=== PATIENT | female | born 1970 | race Caucasian/White ===

== ENCOUNTER → 2016-06-18 | Outpatient (CLI) | payer OTHER ==
[~2016-06-18] MED LIST: ALPR.5T PO; BUTA-234 PO; HYDR1TAB PO; NORT25CA PO; bcp PO
[2016-06-18 13:48] LABS: MEAN PLATELET VOLUME 9.5 FL (7.4-10.4); RED BLOOD COUNT 4.36 10^6/uL (4.35-5.85); RED CELL DISTRIBUTION WIDTH 12.4 % (10.0-14.5); WHITE BLOOD COUNT 5.5 10^3/uL (4.3-11.0)
--- NOTE | 2016-06-18 14:08 | Diagnostic Imaging Report ---
PROCEDURE: CT head without contrast. TECHNIQUE: Multiple contiguous axial images were obtained through the brain without the use of intravenous contrast. INDICATION: Blurred vision. Headache. FINDINGS: There is no intracranial hemorrhage, edema, or mass effect. The brain parenchyma and hidalgo-white matter differentiation are preserved. There is a tiny focus of hypodensity about 4 mm in size in the left centrum semiovale of uncertain clinical significance. A similar tiny lesion is also seen in the posterior right periventricular white matter. There is no hydrocephalus. No extra-axial fluid collection is seen. The calvarium, the visualized portions of the paranasal sinuses, and the orbits appear grossly unremarkable. IMPRESSION: Minimal white matter abnormalities as described of questionable clinical significance. If symptoms persist, consider better evaluation with MRI. Dictated by: Dictated on workstation # [id number]
[2016-06-18 14:14] LABS: ALANINE AMINOTRANSFERASE 19 U/L (0-55); ALBUMIN 3.6 G/DL (3.2-4.5); ANION GAP 8 MMOL/L (5-14); ASPARTATE AMINO TRANSFERASE 18 U/L (5-34); BILIRUBIN,TOTAL 0.4 MG/DL (0.1-1.0); BLOOD UREA NITROGEN 12 MG/DL (7-18); BUN/CREATININE RATIO 13; CALCIUM 8.5 MG/DL (8.5-10.1); CARBON DIOXIDE 23 MMOL/L (21-32); CHLORIDE 108 MMOL/L (98-107); GFR ESTIMATED > 60; GLUCOSE 100 MG/DL (70-105); POTASSIUM 4.1 MMOL/L (3.6-5.0); SODIUM 139 MMOL/L (135-145); TOTAL PROTEIN 6.7 G/DL (6.4-8.2)
== END ==
LOC: RAD 13:23
PROVIDERS: ATTEND Family Medicine
DX: R51 Headache (principal); R53.83 Other fatigue; H53.8 Other visual disturbances; Z80.8 Family history of malignant neoplasm of other organs or systems; E78.5 Hyperlipidemia, unspecified; M25.551 Pain in right hip; M25.552 Pain in left hip; M25.50 Pain in unspecified joint
CPT/HCPCS: 36415; 70450; 80053; 85027; 85652; 86038

== ENCOUNTER → 2016-06-21 | Outpatient (CLI) | payer OTHER ==
[~2016-06-21] MED LIST changes: +GADOBUTROL 10 MMOL/10 ML (GADAVIST) VIAL IV ONE
--- NOTE | 2016-06-21 12:11 | Diagnostic Imaging Report ---
PROCEDURE: MR imaging of the brain with and without contrast. TECHNIQUE: Multiplanar, multisequence MR imaging of the brain was performed with and without contrast. INDICATION: Migraine headaches. 9 mL of Gadavist is administered intravenously. FINDINGS: There is no diffusion restriction to suggest an acute infarct or other diffusion abnormality. The brain parenchyma demonstrates normal signal intensity in the hidalgo and white matter. There is no enhancing mass. No hydrocephalus. No extra-axial fluid collection is seen. The central vascular flow-voids appear preserved. The internal auditory canals and inner ear structures appear symmetric. The pituitary gland is normal in size. No thalamic or pineal region mass. The paranasal sinuses and orbits appear grossly unremarkable. IMPRESSION: Unremarkable exam. Dictated by: Dictated on workstation # [id number]
== END ==
LOC: RAD 10:05
PROVIDERS: ATTEND Family Medicine
DX: R93.0 Abnormal findings on diagnostic imaging of skull and head, not elsewhere classified (principal)
CPT/HCPCS: 70553

== ENCOUNTER → 2017-01-30 | Outpatient (CLI) | payer OTHER ==
[~2017-01-30] MED LIST changes: -GADOBUTROL 10 MMOL/10 ML (GADAVIST) VIAL IV ONE
--- NOTE | 2017-01-30 12:44 | Diagnostic Imaging Report ---
3 views of lumbar spine. INDICATION: Back pain. FINDINGS: There is satisfactory alignment of the lumbar spine at the posterior spinal line. There is straightening of the upper to mid lumbar spine curvatures which could relate to muscle spasm. The vertebral body heights are preserved. There is no significant disc height loss. No significant osteophyte formation is noted. Surgical clips in the upright abdomen seen. Calcification in the right side of the pelvis could relate to uterine fibroid. IMPRESSION: Straightening of the upper and mid lumbar spine curvature could be positional or related to muscle spasm. Dictated by: Dictated on workstation # [id number]
--- NOTE | 2017-01-30 13:05 | Diagnostic Imaging Report ---
AP view of the pelvis and AP and frog-lateral views of both hips. INDICATION: Bilateral hip pain. FINDINGS: No fracture, dislocation or radiopaque foreign body seen. In the right side of the pelvis 1.3 cm calcification is noted which could relate to a uterine fibroid. The SI joints and the symphysis pubis demonstrate no significant degenerative change. The right articular surface appear unremarkable with no fracture or dislocation. The left hip appears unremarkable. IMPRESSION: No significant osteoarthritic changes or fracture seen. A 1.3 cm calcification on the right side of the pelvis could relate to a fibroid. Dictated by: Dictated on workstation # [id number]
== END ==
LOC: RAD 11:15
PROVIDERS: ATTEND Family Medicine
DX: R19.00 Intra-abdominal and pelvic swelling, mass and lump, unspecified site (principal); M54.5 Low back pain; M25.551 Pain in right hip; M25.552 Pain in left hip
CPT/HCPCS: 72100; 73521

== ENCOUNTER → 2018-02-12 | Outpatient (CLI) | payer OTHER | LOC: CARD 14:17 | PROVIDERS: ATTEND Family Medicine | DX: I49.8 Other specified cardiac arrhythmias (principal) | CPT/HCPCS: 93005 ==

== ENCOUNTER → 2018-02-14 | Outpatient (CLI) | payer OTHER | LOC: LAB 08:59 | PROVIDERS: ATTEND Family Medicine | DX: E78.5 Hyperlipidemia, unspecified (principal); R00.2 Palpitations | CPT/HCPCS: 36415; 82728; 83540 ==

== ENCOUNTER → 2018-06-10 | Outpatient (CLI) | payer OTHER | LOC: LAB 18:35 | PROVIDERS: ATTEND Nurse Practitioner Family | DX: E61.1 Iron deficiency (principal) | CPT/HCPCS: 36415; 82728; 83540 ==

== ENCOUNTER → 2018-07-29 | Outpatient (CLI) | payer OTHER ==
--- NOTE | 2018-07-29 15:42 | Diagnostic Imaging Report ---
INDICATION: Chronic neck pain. TECHNIQUE: Four views of the cervical spine were obtained. FINDINGS: The alignment is normal. The vertebral body heights are well-maintained. There is no fracture or traumatic subluxation. The odontoid is intact and the lateral masses are well aligned. There are minimal degenerative changes. IMPRESSION: Minimal degenerative changes; otherwise, unremarkable. Dictated by: Dictated on workstation # [id number]
== END ==
LOC: RAD 10:28
PROVIDERS: ATTEND Family Medicine
DX: G89.29 Other chronic pain (principal); M54.2 Cervicalgia
CPT/HCPCS: 72040

== ENCOUNTER → 2019-01-07 | Outpatient (CLI) | payer OTHER ==
--- NOTE | 2019-01-07 12:57 | Diagnostic Imaging Report ---
INDICATION: Routine screening. COMPARISON: 07/26/2015 and 01/06/2014. TECHNIQUE: 2D and 3D bilateral screening mammography was performed with CAD. FINDINGS: Scattered fibroglandular densities are identified bilaterally. The overall parenchymal pattern appears to be stable. No mass or malignant appearing microcalcifications are seen. The axillae are unremarkable. IMPRESSION: No mammographic features suspicious for malignancy are identified. ACR BI-RADS Category 1: Negative. Result letter will be mailed to the patient. Note: At least 10% of breast cancer is not imaged by mammography. Dictated by: Dictated on workstation # [id number]
== END ==
LOC: RAD 10:45
PROVIDERS: ATTEND Obstetrics & Gynecology
DX: Z12.31 Encounter for screening mammogram for malignant neoplasm of breast (principal)
CPT/HCPCS: 77067

== ENCOUNTER → 2019-12-22 | Outpatient (CLI) | payer OTHER ==
[2019-12-22 11:49] LABS: BASOPHILS % (AUTO) 0 % (0-10); EOSINOPHILS # (AUTO) 0.3 10^3/uL (0.0-0.3); EOSINOPHILS % (AUTO) 6 % (0-10); HEMATOCRIT 41 % (35-52); HEMOGLOBIN 13.6 g/dL (11.5-16.0); LYMPHOCYTES # (AUTO) 1.6 10^3/uL (1.0-4.0); LYMPHOCYTES % (AUTO) 32 % (12-44); MEAN CORPUSCULAR HEMOGLOBIN 30 pg (25-34); MEAN CORPUSCULAR HGB CONC 34 g/dL (32-36); MEAN CORPUSCULAR VOLUME 90 fL (80-99); MEAN PLATELET VOLUME 9.4 fL (9.0-12.2); MONOCYTES # (AUTO) 0.4 10^3/uL (0.0-1.0); MONOCYTES % (AUTO) 8 % (0-12); NEUTROPHILS # (AUTO) 2.7 10^3/uL (1.8-7.8); NEUTROPHILS % (AUTO) 54 % (42-75); PLATELET COUNT 298 10^3/uL (130-400); WHITE BLOOD COUNT 4.9 10^3/uL (4.3-11.0)
[2019-12-22 11:59] LABS: ALBUMIN 3.9 GM/DL (3.2-4.5); CHLORIDE 106 MMOL/L (98-107); POTASSIUM 4.1 MMOL/L (3.6-5.0); SODIUM 137 MMOL/L (135-145)
[2019-12-22 12:00] LABS: CALCIUM 8.8 MG/DL (8.5-10.1)
[2019-12-22 12:01] LABS: TRIGLYCERIDES 86 MG/DL (<150); VLDL CHOLESTEROL 17 MG/DL (5-40)
[2019-12-22 12:02] LABS: GLUCOSE 96 MG/DL (70-105); TOTAL PROTEIN 7.2 GM/DL (6.4-8.2)
[2019-12-22 12:03] LABS: BILIRUBIN,TOTAL 0.6 MG/DL (0.1-1.0); CARBON DIOXIDE 24 MMOL/L (21-32)
[2019-12-22 12:05] LABS: ALKALINE PHOSPHATASE 36 U/L (40-136); CREATININE SERUM 0.86 MG/DL (0.60-1.30); GFR ESTIMATED > 60
[2019-12-22 12:06] LABS: BUN/CREATININE RATIO 12; CHOLESTEROL 293 MG/DL (< 200)
[2019-12-22 12:07] LABS: HDL CHOLESTEROL 78 MG/DL (40-60)
[2019-12-22 12:08] LABS: ALANINE AMINOTRANSFERASE 20 U/L (0-55)
== END ==
LOC: LAB 11:30
PROVIDERS: ATTEND Family Medicine
DX: Z00.00 Encounter for general adult medical examination without abnormal findings (principal); E78.2 Mixed hyperlipidemia; E61.1 Iron deficiency
CPT/HCPCS: 36415; 80053; 80061; 82728; 83540; 84443; 85025

== ENCOUNTER → 2020-12-27 | Outpatient (CLI) | payer OTHER ==
[2020-12-27 07:34] LABS: BASOPHILS # (AUTO) 0.1 10^3/uL (0.0-0.1); BASOPHILS % (AUTO) 1 % (0-10); EOSINOPHILS # (AUTO) 0.4 10^3/uL (0.0-0.3); EOSINOPHILS % (AUTO) 7 % (0-10); HEMATOCRIT 40 % (35-52); HEMOGLOBIN 13.5 g/dL (11.5-16.0); LYMPHOCYTES # (AUTO) 2.4 10^3/uL (1.0-4.0); LYMPHOCYTES % (AUTO) 42 % (12-44); MEAN CORPUSCULAR HEMOGLOBIN 31 pg (25-34); MEAN CORPUSCULAR HGB CONC 34 g/dL (32-36); MEAN CORPUSCULAR VOLUME 92 fL (80-99); MEAN PLATELET VOLUME 9.7 fL (9.0-12.2); MONOCYTES # (AUTO) 0.5 10^3/uL (0.0-1.0); MONOCYTES % (AUTO) 8 % (0-12); NEUTROPHILS # (AUTO) 2.4 10^3/uL (1.8-7.8); NEUTROPHILS % (AUTO) 41 % (42-75); PLATELET COUNT 340 10^3/uL (130-400); WHITE BLOOD COUNT 5.8 10^3/uL (4.3-11.0)
[2020-12-27 07:52] LABS: ALBUMIN 3.7 GM/DL (3.2-4.5); BILIRUBIN,TOTAL 0.4 MG/DL (0.1-1.0); CALCIUM 9.2 MG/DL (8.5-10.1); CREATININE SERUM 0.89 MG/DL (0.60-1.30); FREE T4 (FREE THYROXINE) 0.96 NG/DL (0.70-1.48); POTASSIUM 3.7 MMOL/L (3.6-5.0); TOTAL PROTEIN 6.9 GM/DL (6.4-8.2)
== END ==
LOC: LAB 07:27
PROVIDERS: ATTEND Family Medicine
DX: Z00.00 Encounter for general adult medical examination without abnormal findings (principal); E78.2 Mixed hyperlipidemia; E61.1 Iron deficiency
CPT/HCPCS: 36415; 80053; 80061; 82728; 83540; 84439; 84443; 84480; 85025

== ENCOUNTER → 2021-01-09 | Outpatient (CLI) | payer OTHER ==
--- NOTE | 2021-01-09 13:12 | Diagnostic Imaging Report ---
INDICATION: Routine screening. Comparison is made with prior mammogram 01/07/2019 and 07/26/2015. 2-D and 3-D bilateral screening mammography was performed with CAD. Scattered fibroglandular densities are identified bilaterally. Circumscribed density has developed in the outer right breast approximately 9 o'clock location, 14 cm from the nipple. This could represent cysts. No other masses are identified. There are occasional benign calcifications. No other masses are seen. No malignant-appearing microcalcification are identified. Axillae are unremarkable. IMPRESSION: BI-RADS 0 Circumscribed density outer right breast, as described. Further evaluation with ultrasound is recommended. ACR BI-RADS Category 0: Incomplete. (Needs additional imaging evaluation). Result letter will be mailed to the patient. Note: At least 10% of breast cancer is not imaged by mammography. Dictated by: Dictated on workstation # [id number]
== END ==
LOC: RAD 11:15
PROVIDERS: ATTEND Obstetrics & Gynecology
DX: Z12.31 Encounter for screening mammogram for malignant neoplasm of breast (principal); R92.2 Inconclusive mammogram
CPT/HCPCS: 77063; 77067

== ENCOUNTER → 2021-01-12 | Outpatient (CLI) | payer OTHER ==
[~2021-01-12] MED LIST changes: +ATOR10TA66 PO; +NORG1TAB14 PO; +RIME75TA PO
--- NOTE | 2021-01-12 22:23 | Diagnostic Imaging Report ---
INDICATION: Right breast density. Patient presents for additional views. COMPARISON: Correlation is made with screening mammogram from 01/09/2021. EXAMINATION: Sonographic interrogation of the upper and outer aspect of the right breast was performed. There is a cyst at the 10 o'clock location, 14 cm from the nipple, measuring 8 mm x 7 mm x 6 mm. There is posterior acoustic enhancement. No internal vascularity is seen. This likely accounts for the mammographic density. No other abnormalities are detected. IMPRESSION: Simple cyst at the 10 o'clock location in the right breast, likely accounting for the mammographic density. The patient may return to routine annual screening mammography. ACR BI-RADS Category 2: Benign findings. Result letter will be mailed to the patient. Note: At least 10% of breast cancer is not imaged by mammography. Dictated by: Dictated on workstation # [id number]
== END ==
LOC: RAD 13:33
PROVIDERS: ATTEND Obstetrics & Gynecology
DX: N60.01 Solitary cyst of right breast (principal)

== ENCOUNTER → 2021-01-16 | Outpatient (CLI) | payer OTHER ==
[~2021-01-16] VITALS: Ht 170.2 cm; Wt 100.0 kg
== END | disposition home or self-care (01) ==
LOC: PREOP 05:52
PROVIDERS: ATTEND Internal Medicine
DX: Z01.818 Encounter for other preprocedural examination (principal)

== ENCOUNTER 2021-01-27 08:28 | Day surgery (SDC) | payer OTHER ==
--- NOTE | 2021-01-16 06:27 | HISTORY AND PHYSICAL ---
DATE OF SERVICE: COLONOSCOPY SUMMARY INDICATION FOR THE PROCEDURE: Screening colonoscopy, family history for colon cancer. HISTORY OF PRESENT ILLNESS: The patient is a 50-year-old white female referred by Dr. Baker for screening colonoscopy. She reports that maternal grandfather in his 50s with colon cancer. She is not aware of any other family history for colon cancer. She denies bowel habit change and has noted no melena or bright red blood per rectum. She reports no change in weights, in her usual state of health. PAST MEDICAL HISTORY: Significant for migraine headache, most notably around periods, which she has infrequently on estrogen replacement therapy for which she reports last several times a year while she has stopped to have a period. Significant for migraine headaches that she takes anti-CGRP medication for, see above. PAST SURGICAL HISTORY: She had cholecystectomy over 10 years ago and several eye surgeries as a child. FAMILY HISTORY: Mother is living at the age of 78 with a recent stroke. Father earlier this year of complications from pneumonia at the age of 76, also likely had a stroke after pneumonia diagnosis. SOCIAL HISTORY: She works as a laboratory technician at [employer], no past smoking history. Reports that she will have 2 glasses of wine roughly 3 times a week. REVIEW OF SYSTEMS: CONSTITUTIONAL: Has had no change in weight, night sweats, chills or fever. PULMONARY: Denies cough, wheezing, shortness of breath. CARDIOVASCULAR: Denies orthopnea, PND, pedal edema or chest pain. GASTROINTESTINAL: As noted in the HPI. PHYSICAL EXAMINATION: GENERAL: Reveals a white female, appears to be in no acute distress. HEENT: Unremarkable. CHEST: Clear. CARDIOVASCULAR: Reveals a regular rate and rhythm without murmur, S3 or S4. VITAL SIGNS: Blood pressure 130/90, weight 227 pounds. ABDOMEN: Soft, supple without mass, organomegaly or tenderness. Bowel sounds positive. EXTREMITIES: Reveal no cyanosis, clubbing or edema. ASSESSMENT AND PLAN: The patient is being set up for screening colonoscopy. Prep instructions with Suprep kit were given and questions were answered. She is deemed to be a little higher than average risk as does have one maternal grandfather diagnosed with colon cancer at the age of 50. I thank you for the referral of this pleasant lady. Job ID: [id number] DocumentID: [id number] Dictated Date: 01/09/2021 11:53:21 Railway Switch Operator Date: 01/09/2021 12:12:38 Dictated By: KAISER PATRICK MD MTDD
[~2021-01-27] VITALS: Ht 170.2 cm; Wt 100.0 kg
[2021-01-27] MEDS ORDERED: LACTATED RINGERS 1,000 ML IV ONE (08:37)
[2021-01-27] MEDS ORDERED: LACTATED RINGERS 1,000 ML IV STA (08:47)
[2021-01-27] MEDS ORDERED: LIDOCAINE JELLY 2% 6 ML SYRINGE MM PRN (09:00)
--- NOTE | 2021-01-27 09:13 | Pre-Op Note & Conscious Sedat ---
Pre-Operative Progress Note H&P Reviewed The H&P was reviewed, patient examined and no changes noted. Date H&P Reviewed: Jan 27, 2021 Time H&P Reviewed: 09:12 Conscious Sedation Pre-Proced ASA Score 2 For ASA 3 and 4: Consider anesthesia and medical clearance. Also, for patients with a history of failed moderate sedation consider anesthesia. Airway Lungs Heart ASA score ASA 1: a normal healthy patient ASA 2: a patient with a mild systemic disease (mid diabetes, controlled hypertension, obesity ASA 3: a patient with a severe systemic disease that limits activity (angina, COPD, prior Myocardial infarction) ASA 4: a patient with an incapacitating disease that is a constant threat to life (CHF, renal failure) ASA 5: a moribund patient not expected to survive 24 hrs. (ruptured aneurysm) ASA 6: a declared brain- patient whose organs are being harvested. For emergent operations, add the letter E after the classification Mallampati Classification Grade 2 Sedation Plan Analgesia, Amnesia, Plan communicated to team members, Discussed options with patient/fam, Discussed risks with patient/fam The patient is an appropriate candidate to undergo the planned procedure, sedation, and anesthesia. The patient immediately re-assessed prior to indication. KAISER PATRICK MD Jan 27, 2021 09:13
[2021-01-27 09:16] VITALS: BP 140/86
[2021-01-27] MEDS ORDERED: proPOfol 200 MG/20 ML (DIPRIVAN) VIAL IV ONE (09:46)
[2021-01-27] MEDS ORDERED: MIDAZOLAM 2 MG/2 ML (VERSED) VIAL ONE (09:46)
[2021-01-27 10:31] VITALS: BP 118/64
[2021-01-27 10:35] VITALS: BP 106/59
[2021-01-27 10:45] VITALS: BP 106/59
[2021-01-27 11:10] VITALS: BP 132/89
[2021-01-27 11:20] VITALS: BP 132/89
--- NOTE | 2021-01-27 13:34 | Anesthesia-General Post-Op ---
MAC Patient Condition Mental Status/LOC: Same as Preop Cardiovascular: Satisfactory Nausea/Vomiting: Absent Respiratory: Satisfactory Pain: Controlled Complications: Absent Post Op Complications Complications None Follow Up Care/Instructions Patient Instructions None needed. Anesthesiology Discharge Order Discharge Order Patient is doing well, no complaints, stable vital signs, no apparent adverse anesthesia problems. No complications reported per nursing. ASTRID RICE CRNA Jan 27, 2021 13:34
--- NOTE | 2021-01-27 15:05 | OPERATIVE REPORT ---
DATE OF SERVICE: COLONOSCOPY SUMMARY INDICATION FOR THE PROCEDURE: Screening colonoscopy. DESCRIPTION OF PROCEDURE: The patient was placed in the left lateral decubitus position. Prior to undergoing colonoscopy, a digital rectal evaluation was performed. Anal sphincter tone was normal and the perianal reflex was intact. No abnormalities were noted on digital inspection of anal canal or distal rectal vault. Colonoscope was then inserted into the rectum and under direct visualization advanced to the cecum. The cecum was identified by identification of the ileocecal valve and cecal strap. Quality of the prep was fair. FINDINGS: There was no evidence for internal or external hemorrhoids. The rectum was unremarkable. Moderate diverticular disease was present throughout the sigmoid colon, descending colon and distal transverse colon. No evidence for acute diverticulitis was noted. No neoplasia in these areas was identified. The hepatic flexure and ascending colon were unremarkable. Questionable polyp that may have been suction artifact was noted in the cecum and it was biopsied and ablated and submitted for histopathology. No other cecal abnormalities were appreciated. ASSESSMENT: Moderate diverticular disease present in the sigmoid colon, descending colon and distal transverse colon was present without evidence for diverticulitis. One questionable polyp was removed from the cecum. No other abnormalities were noted on today's procedure. Considering family history as long as there are no surprises on histopathology report, would advocate repeat surveillance colonoscopy in five years. I thank you for the referral of this pleasant lady. Job ID: [id number] DocumentID: [id number] Dictated Date: 01/27/2021 10:32:43 Contracts Attorney Date: 01/27/2021 15:05:05 Dictated By: KAISER PATRICK MD
== END 2021-01-27 11:20 | disposition home or self-care (01) ==
LOC: ENDO 08:28
PROVIDERS: ATTEND Internal Medicine
DX: Z12.11 Encounter for screening for malignant neoplasm of colon (principal); K63.89 Other specified diseases of intestine; K57.30 Diverticulosis of large intestine without perforation or abscess without bleeding; E78.5 Hyperlipidemia, unspecified; E66.9 Obesity, unspecified; G43.909 Migraine, unspecified, not intractable, without status migrainosus; Z68.34 Body mass index [BMI] 34.0-34.9, adult; Z79.899 Other long term (current) drug therapy; Z90.49 Acquired absence of other specified parts of digestive tract; Z80.0 Family history of malignant neoplasm of digestive organs
CPT/HCPCS: 84703

== ENCOUNTER → 2021-07-11 | Outpatient (CLI) | payer OTHER ==
[2021-07-11 09:27] LABS: BILIRUBIN,TOTAL 0.3 MG/DL (0.1-1.0); CALCIUM 8.5 MG/DL (8.5-10.1); CREATININE SERUM 0.9 MG/DL (0.60-1.30); POTASSIUM 3.9 MMOL/L (3.6-5.0)
[2021-07-11 09:28] LABS: ALBUMIN 3.6 GM/DL (3.2-4.5); TOTAL PROTEIN 6.8 GM/DL (6.4-8.2)
== END ==
LOC: LAB 07:49
PROVIDERS: ATTEND Family Medicine
DX: E78.5 Hyperlipidemia, unspecified (principal)
CPT/HCPCS: 36415; 80053; 80061

== ENCOUNTER → 2021-09-06 | Outpatient (CLI) | payer OTHER ==
[2021-09-06 12:44] LABS: URIC ACID 4.7 MG/DL (2.6-7.2)
[2021-09-06 13:06] LABS: FREE T4 (FREE THYROXINE) 0.88 NG/DL (0.70-1.48)
== END ==
LOC: LAB 11:47
PROVIDERS: ATTEND Family Medicine
DX: M79.10 Myalgia, unspecified site (principal); R29.898 Other symptoms and signs involving the musculoskeletal system; R79.89 Other specified abnormal findings of blood chemistry; E55.9 Vitamin D deficiency, unspecified; E61.1 Iron deficiency; M25.50 Pain in unspecified joint
CPT/HCPCS: 36415; 82306; 82728; 83540; 83550; 84439; 84443; 84480; 84550; 85652; 86038; 86060; 86141; 86431

== ENCOUNTER → 2021-09-08 | Outpatient (CLI) | payer OTHER ==
--- NOTE | 2021-09-08 12:23 | Diagnostic Imaging Report ---
INDICATION: Chronic back pain with recent exacerbation. COMPARISON: 01/30/2017. FINDINGS: Frontal and lateral views of the lumbar spine were obtained. Alignment and vertebral heights are maintained. There is no fracture or destructive process. Mild multilevel degenerative disease is noted in the lumbar spine. Limited views of the abdomen demonstrate nonobstructive bowel gas pattern. IMPRESSION: 1. No acute fracture or dislocation of the lumbar spine. 2. Mild multilevel degenerative changes. Dictated by: Dictated on workstation # [id number]
--- NOTE | 2021-09-08 12:24 | Diagnostic Imaging Report ---
INDICATION: Bilateral hip pain, right greater than left. COMPARISON: None. FINDINGS: AP view of the pelvis and multiple dedicated radiographic views of each hip were obtained. There is no fracture, dislocation, bone destruction, or radiopaque foreign body. The visualized pelvic osseous structures and the SI joints demonstrate no acute fracture or dislocation. There is no bone destruction or radiopaque foreign body. The surrounding soft tissue structures are unremarkable. IMPRESSION: 1. Unremarkable radiographic exam of the pelvis and bilateral hips. Dictated by: Dictated on workstation # [id number]
== END ==
LOC: RAD 11:00
PROVIDERS: ATTEND Family Medicine
DX: M47.816 Spondylosis without myelopathy or radiculopathy, lumbar region (principal); M25.551 Pain in right hip; M25.552 Pain in left hip; R29.898 Other symptoms and signs involving the musculoskeletal system
CPT/HCPCS: 72100; 73523